=== PATIENT | male | born 1945 | race Caucasian/White ===

== ENCOUNTER 2017-06-23 19:50 | Emergency (ER) | payer OTHER, MEDICARE ==
[~2017-06-23] VITALS: Ht 177.8 cm; Wt 100.5 kg
[~2017-06-23 19:50] MED LIST: ANTI-FUNGAL71 GM TP; CLEOCIN300 MG PO; FLOMAX0.4 MG PO; HYDROCHLOROTHIA25 MG PO; INDERAL20 MG PO; KEFLEX500 MG PO; LISINOPRIL40 MG PO; PRAVACHOL80 MG PO; ZANTAC150 MG PO
[2017-06-23 20:43] LABS: ADD MIUA? YES; BILIRUBIN NEGATIVE; BLOOD LARGE; COLOR YELLOW ((YELLOW)); GLUCOSE (STRIP) NEGATIVE; KETONES NEGATIVE; LEUKOCYTES NEGATIVE; NITRITE NEGATIVE; PROTEIN (STRIP) 30; SPECIFIC GRAVITY 1.017 (1.000-1.030); UROBILINOGEN 0.2 MG/DL (0.2-1.0)
[2017-06-23 20:49] LABS: BACTERIA RARE /HPF; EPITHELIAL CELLS NONE SEEN /HPF; HYALINE CASTS 0-5 /LPF; MUCUS 1+ /LPF; RED BLOOD CELLS TNTC /HPF (0-5); UCUL ADDED? YES; WHITE BLOOD CELLS 0-5 /HPF (0-5)
[2017-06-23] MEDS ORDERED: MOTRIN800 MG PO (23:56)
[2017-06-23] MEDS ORDERED: FLOMAX0.4 MG PO (23:56)
[2017-06-23] MEDS ORDERED: PERCOCET 5/31 TABLET PO (23:56)
[2017-06-24 00:10] VITALS: BP 156/72
== END 2017-06-24 00:11 | disposition home or self-care (01) ==
LOC: EME 19:50
DX: N20.0 Calculus of kidney (principal); R31.9 Hematuria, unspecified; I10 Essential (primary) hypertension; E78.5 Hyperlipidemia, unspecified; K21.9 Gastro-esophageal reflux disease without esophagitis; Z87.891 Personal history of nicotine dependence
CPT/HCPCS: 74176; 81003; 87086 GA; 99281; 99284; J1885

== ENCOUNTER 2017-06-26 09:06 | Emergency (ER) | payer OTHER, MEDICARE ==
[~2017-06-26] VITALS: Ht 177.8 cm; Wt 101.1 kg
[~2017-06-26 09:06] MED LIST changes: +MOTRIN800 MG PO; +PERCOCET 5/31 TABLET PO
[2017-06-26 10:17] LABS: HEMATOCRIT 46.2 % (38.0-50.0); MCHC 33.1 G/DL (30.0-36.0); MCV 87.7 FL (86-99); MEAN PLAT.VOLUME 10.8 uM^3 (9.0-12.4); PLATELET COUNT 139 K/uL (156-360); RBC DIS.WIDTH-CV 13.9 % (11.8-14.6); RBC DIS.WIDTH-SD 44.6 % (39-53); RED BLOOD COUNT 5.27 M/uL (4.00-5.50); WHITE BLOOD COUNT 7.2 K/uL (4.1-10.2)
[2017-06-26 10:26] LABS: CHLORIDE 102 mEq/L (99-109); POTASSIUM 3.7 mEq/L (3.7-5.4); SODIUM 137 mEq/L (136-147)
[2017-06-26 10:28] LABS: GLUCOSE 140 mg/dL (70-99)
[2017-06-26 10:29] LABS: ANION GAP 12 MEQ/L (2-14)
[2017-06-26 10:32] LABS: GFR ESTIMATE (CALCULATED) 33 mL/min/
[2017-06-26 10:33] LABS: UREA NITROGEN (BUN) 23 mg/dL (9-23)
[2017-06-26 11:10] LABS: ADD MIUA? NO; BILIRUBIN NEGATIVE; BLOOD NEGATIVE; COLOR YELLOW ((YELLOW)); GLUCOSE (STRIP) NEGATIVE; KETONES NEGATIVE; LEUKOCYTES NEGATIVE; NITRITE NEGATIVE; PROTEIN (STRIP) NEGATIVE; SPECIFIC GRAVITY 1.013 (1.000-1.030); UCUL ADDED? NO; UROBILINOGEN 0.2 MG/DL (0.2-1.0)
[2017-06-26 13:41] VITALS: BP 126/69
== END 2017-06-26 13:40 | disposition home or self-care (01) ==
LOC: EME 09:06
PROVIDERS: Emergency Medicine
DX: N20.2 Calculus of kidney with calculus of ureter (principal); N17.9 Acute kidney failure, unspecified; E86.0 Dehydration; I10 Essential (primary) hypertension; E78.5 Hyperlipidemia, unspecified
CPT/HCPCS: 74000; 80048; 81003; 82565; 85027; 93005; 99281; 99284; J2270; J7030; J7120